=== PATIENT | female | born 1955 | race African-American/Black ===

== ENCOUNTER 2016-10-03 17:48 | Observation (INO) ==
[2016-10-03] MEDS ORDERED: ASPIRIN 325 MG TABLET PO STA (18:27)
[2016-10-03] MEDS ORDERED: NITROGLYCERIN 2% OINT 1 INCH/GM PACK TOP STA (18:27)
[2016-10-03] MEDS ORDERED: KETOROLAC 30 MG/1 ML VIAL IV STA (18:27)
[2016-10-03] MEDS ORDERED: ALUM/MAG/SIMETH/LIDO VISC 1:1 30 ML BOTTLE PO STA (18:27)
[2016-10-03] MEDS ORDERED: ONDANSETRON 4 MG/2 ML VIAL IV STA (18:27)
[2016-10-03] MEDS ORDERED: FUROSEMIDE 40 MG/4 ML VIAL IV STA (18:27)
--- NOTE | 2016-10-03 18:30 | EKG Report ---
Stationary ECG Study [facility] ER Test Date: 10/03/2016 6:13:22 PM Pat Name: NENA HERNANDEZ Department: Room: Gender: F Job Checker: : 1955 Requested by: Ricky Ozuna Order Number: [id number] Reading MD: CHUCHO PETE Intervals [place] Rate: 64 P: 65 IN: 175 QRS: 29 QRSD: 85 T: 13 QT: 384 QTc: 393 Interpretive Statements SINUS RHYTHM SEPTAL INFARCT, PROBABLY OLD Electronically Signed On 10-08-16 11:26:23 CDT by CHUCHO PETE [email or web address]
[2016-10-03] MEDS ORDERED: ONDANSETRON 4 MG/2 ML VIAL ONE (18:45)
[2016-10-03] MEDS ORDERED: FUROSEMIDE 40 MG/4 ML VIAL ONE (18:45)
[2016-10-03] MEDS ORDERED: NITROGLYCERIN 2% OINT 1 INCH/GM PACK TOP ONE (18:45)
[2016-10-03 18:46] LABS: Basophils % 0.5 % (0.0-0.8); Eosinophils # 0.1 10*3/uL (0.0-0.87); Hematocrit 40.1 VOL% (35.7-47.0); Hemoglobin 13.4 GM/DL (12.0-16.0); Immature Granulocytes % 0.3 %; Immature Granulocytes Absolute 0.02 #; Lymphocytes # 2.9 10*3/uL (1.4-4.0); Lymphocytes % 48.6 % (21.3-54.2); Mean Corpuscular HGB Conc 33.4 GM/DL (32-36); Mean Corpuscular Hemoglobin 31 PG (27-34); Mean Corpuscular Volume 91.8 FL (87-102); Mean Platelet Volume 10.4 FL (9.6-12.0); Monocytes # 0.7 10*3/uL (0.11-0.8); Monocytes % 11.4 % (1.7-12.7); Neutrophils # 2.3 10*3/uL (1.4-7.4); Neutrophils % 38.2 % (38.7-73.9); Platelet Count 216 T/CUMM (130-400); Red Blood Count 4.37 MC/CUMM (3.8-5.5); Red Cell Distribution Width 14.2 % (9.3-17.3)
[2016-10-03] MEDS ORDERED: KETOROLAC 30 MG/1 ML VIAL ONE (18:46)
[2016-10-03] MEDS ORDERED: ASPIRIN 325 MG TABLET ONE (18:46)
[2016-10-03] MEDS ORDERED: ALUM/MAG/SIMETH/LIDO VISC 1:1 30 ML BOTTLE PO ONE (18:46)
[2016-10-03 18:53] LABS: PT Patient Result 10.5 SECS
[2016-10-03 18:57] LABS: Albumin 3.5 G/DL (3.4-5.0); Bilirubin,Total 0.4 MG/DL (0.2-1.0); Calcium 9.1 MG/DL (8.5-10.1); Osmolality,Calculated 285.8 MOS/KG (273-304); Potassium 3.7 MMOL/L (3.5-5.1); Total Protein 6.6 G/DL (6.4-8.3)
[2016-10-03 18:58] LABS: Magnesium 2.1 MG/DL (1.8-2.4)
--- NOTE | 2016-10-03 19:09 | XRay Report ---
XR chest 2V Date: 10/03/2016 6:28 PM History: Chest pain Comparison: None Technique: PA and lateral chest Findings: The heart is normal in size. The lungs are clear with unremarkable mediastinum. Degenerative changes are noted. Impression: No acute cardiopulmonary pathology identified. PROCEDURE INTERPRETED AT [facility] DEPARTMENT OF RADIOLOGY Final Report Signed by: Dr. Laverne Barroso
--- NOTE | 2016-10-03 19:20 | Emergency Department Note ---
ICarlos Kasabria, am scribing for, and in the presence of, Ricky Feldman MD 18:42. IGaston Charles R, MD, personally performed the services described in this documentation, ascribed by Nuria Gonzalez in my presence, and it is both accurate and complete 920 . Arrival - Arrival Chief Complaint: Chest Pain Stated Complaint: CHEST PAINS ED Nursing Triage Note: PT C/O PAIN TO LEFT CHEST WALL THAT RADIATES TO LEFT SHOULDER. PT C/O SHORTNESS OF BREATH WITH EXERTION AND ALSO WHILE TALKING. PT REPORTS WALKING 7 MILES THIS MORNING. PT TOOK A GAS PILL LEARNING AND DEVELOPMENT OFFICER TO RULE OUT INDIGESTION. PT ALSO TOOK 1 [employer] ASA LEARNING AND DEVELOPMENT OFFICER. Mode of Arrival: Ambulatory Limitations: No Limitations Source: Patient Time Seen by Provider: 10/03/16 18:26 - History of Present Illness HPI Narrative: This is a 60 y/o black female presenting to the ED with c/o left sided chest wall tenderness that radiates to her neck and down her left shoulder. She describes the pain as a heaviness. Pt states when she walks she becomes short of breath with exertion and she is dyspneic when talking. Pt states she thought this was indigestion at first so she took Gas X with no relief. 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 She took a baby ASA travel pta with no relief. A physical was performed yesterday by Dr. Bowling which showed no abnormalities. She has diaphoresis but denies nausea, vomiting, diarrhea, abdominal pain, LENZ, vision change, and dysuria. Consistency: constant Severity: moderate Quality: other (heaviness ) Allergies/Adverse Reactions: Allergies Allergy/AdvReac Type Severity Reaction Status Date / Time codeine Allergy Hallucinati Verified 10/03/16 18:07 ng Home Medications: Home Medications Medication Instructions Recorded Confirmed Type Atorvastatin [Lipitor] 10 mg PO BEDTIME 10/03/16 10/03/16 History Valsartan/Hctz 80-12.5 [Diovan Hct 1 tablet PO QAM 10/03/16 10/03/16 History 80-12.5] Review of System - Review of System 12 point system: reviewed and no additional remarkable complaints except as stated - Review of System Constitutional: Present: diaphoresis. Absent: chills, fever, weakness Eyes: Absent: vision change Head/Ears/Nose/Throat: Absent: earache, nasal drainage Respiratory: Absent: cough, wheezing Cardiovascular: Present: chest pain (left sided that radiates to neck and left shoulder ), dyspnea on exertion Gastrointestinal: Absent: abdominal pain, nausea, vomiting, diarrhea Genitourinary female: Absent: dysuria Musculoskeletal: Absent: arm pain, back pain, leg pain, neck pain Skin: Absent: rash Neurological: Absent: headache, weakness, numbness, confusion, vertigo Psychiatric: Absent: anxiety Endocrine: Absent: fatigue Hematological/Lymphatic: Absent: easy bleeding Allergic/Immunologic: Absent: facial swelling Medical,Surgical,& Family Hx - Medical History Cardio: History of: Hypertension Endocrine: History of: Dyslipidemia - Surgical History Reproductive Surgeries: Surgical HX of;: Breast Surgery (RIGHT LUMPECTOMY) - Family History Family History: Reports;: Family Heart Disease - Social History Smoking Status: Never smoker Frequency of Alcohol Use: None Type of Drug Use: None Exam Vital Signs: Vital Signs Temperature 97.8 F 10/03/16 18:41 Pulse Rate 66 10/03/16 18:41 Respiratory Rate 20 10/03/16 18:41 Blood Pressure 191/98 10/03/16 18:41 O2 Sat by Pulse Oximetry 98 10/03/16 18:02 - General General appearance: alert, in no apparent distress - Head Head exam: Present: atraumatic, normocephalic, normal inspection - Eye Eye exam: Present: normal appearance, PERRL, EOMI - ENT ENT exam: Present: normal exam, normal oropharynx, mucous membranes moist, TM's normal bilaterally, normal external ear exam - Neck Neck exam: Present: normal inspection, full ROM, trachea midline. Absent: tenderness - Chest Chest inspection: Present: normal inspection, symmetric chest wall rise - Respiratory Respiratory exam: Present: rales (at the base bilaterally ). Absent: normal lung sounds bilaterally - Cardiovascular Cardiovascular exam: Present: regular rate, irregular rhythm (extrasystole ). Absent: normal rhythm - Abdominal Exam Abdominal exam: Present: soft, normal bowel sounds. Absent: distention, tenderness - Extremities Exam Extremities exam: Present: normal inspection, full ROM, normal capillary refill. Absent: tenderness, pedal edema, calf tenderness - Back Exam Back exam: Present: normal inspection, full ROM. Absent: tenderness - Neurological Exam Neurological exam: Present: alert, oriented X3, CN II-XII intact, normal gait, reflexes normal - Psychiatric Psychiatric exam: Present: normal affect, normal mood - Skin Skin exam: Present: warm, dry, intact, normal color. Absent: diaphoresis Course - Consultations Consultation #1: Hospitalist will admit patient Time: 20:18 Results - Labs CBC & BMP: 10/03/16 18:25 10/03/16 18:25 Lab Results: I have reviewed the patients labs Disposition Clinical Impression: Chest pain, Unstable angina pectoris Case discussed with: patient, patient's family Disposition: Still a Patient Condition: Stable Time of Disposition: 20:18
[2016-10-03 19:34] LABS: Eosinophils 1 % (0-10); Hypochromasia Slight; Lymphocytes 52 % (20-55); Platelet Estimate Normal; Segmented Neutrophils 36 % (50-85); Total Cells Counted 100
[2016-10-03 19:35] LABS: Burr Cells Few; Poikilocytosis 1+; Tear Drop Cells Few
[2016-10-03] MEDS ORDERED: ZALEPLON 5 MG CAPSULE PO PRN (20:17)
[2016-10-03] MEDS ORDERED: ACETAMINOPHEN 325 MG TABLET PO PRN (20:17)
[2016-10-03] MEDS ORDERED: MORPHINE 2 MG/1 ML SYRINGE IV PRN (20:17)
[2016-10-03 20:52] LABS: Apearance,Urine CLEAR (Clear); Bilirubin,Urine Negative (Negative); Blood, Urine Small mg/dL (Negative); Glucose,Urine (UA) Negative (Negative); Ketones,Urine Negative (Negative); Mucus,Urine Occasional /LPF (Occasional); Nitrite,Urine Negative (Negative); Protein,Urine Negative; RBC,Urine 2 /HPF (0-4); Squamous Epithelial Cell,Urine Occasional /HPF (0-10); Urine Color Colorless (Yellow); Urine Specific Gravity 1.004 (1.001-1.035); Urine Urobilinogen < 2.0 EU/DL (0.2-1.0); WBC,Urine 1 /HPF (0-6)
[2016-10-03] MEDS: ATORVASTATIN 10 MG TABLET PO SCH (22:11)
[2016-10-03] MEDS: ENOXAPARIN 40 MG/0.4 ML SYRINGE SUBCUT SCH (22:11)
--- NOTE | 2016-10-03 22:43 | Hospitalist History & Physical ---
Assessment and Plan (1) Unstable angina pectoris Status: Acute Assessment and plan: Admitted to telemetry Serial cardiac enzymes 3 Repeat EKG in a.m. Consult cardiology Check lipid panel and TSH for further risk stratification Continue home medications Morphine oxygen nitroglycerin and aspirin Current Visit: Yes (2) Chest pain Status: Acute Current Visit: Yes Qualifiers: Ischemic chest pain type: unstable angina pectoris (3) Hypertension Status: Chronic Current Visit: Yes Qualifiers: Hypertension type: essential hypertension Qualified Code(s): I10 - Essential (primary) hypertension (4) Hyperlipidemia Status: Chronic Current Visit: Yes Qualifiers: Hyperlipidemia type: unspecified Qualified Code(s): E78.5 - Hyperlipidemia , unspecified History of Present Illness Chief complaint: Chest pain and shortness of breath History of present illness: Ms. Flores is a 60 year old female presented to the emergency department today with sudden onset mid sternal chest pain and pressure. The patient reports symptoms began at rest. They were persistent and worsening. She describes it as a heaviness and dull pressure in the middle of her chest. It was associated with some diaphoresis and shortness of breath. No syncope. She has never had symptoms like this before. And improved with nitroglycerin in the emergency department. She has a history of hypertension hyperlipidemia. Family history is significant for coronary artery disease and multiple family members. Cardiac enzymes are negative in the emergency department. She is being admitted for serial cardiac enzymes, repeat EKG in consultation with cardiology for possible stress test. Ms. Flores is relatively active and walks regularly for exercise. The symptoms began at rest while at home. She denies any anxiety or stress or associated factors with the pain. Home Medications Medication Instructions Recorded Confirmed Type Atorvastatin [Lipitor] 10 mg PO BEDTIME 10/03/16 10/03/16 History Valsartan/Hctz 80-12.5 [Diovan Hct 1 tablet PO QAM 10/03/16 10/03/16 History 80-12.5] Allergies Allergy/AdvReac Type Severity Reaction Status Date / Time codeine Allergy Hallucinati Verified 10/03/16 18:07 ng Medical,Surgical,& Family Hx - Medical History Cardio: History of: Hypertension Endocrine: History of: Dyslipidemia - Surgical History Reproductive Surgeries: Surgical HX of;: Breast Surgery (RIGHT LUMPECTOMY) - Family History Family History: Reports;: Family Heart Disease - Social History Smoking Status: Never smoker Frequency of Alcohol Use: None Type of Drug Use: None Marital Status: Lives With:: Spouse Functional capacity: independent ambulation 12 point system: reviewed and no additional remarkable complaints except as stated Exam - Constitutional Exam: Constitutional System: No distress. No tremulousness. Head: Normocephalic, atraumatic. Ears, Nose and Throat System: No pain or tenderness. No epistaxis or discharge Eyes System: Pupils equal, round, and reactive. Extraocular muscles intact. Neck: Supple, without adenopathy, No jugular venous distention. No thyromegaly, neck mass, or prior surgery apparent. Respiratory System: Chest clear to auscultation. Cardiovascular System: Heart with regular rate and rhythm. No murmur. GI System: Abdomen soft, nontender. Normo active bowel sounds present. Musculoskeletal System: limbs with no pedal edema. Full distal pulses. Neurological System: No discernable sensory deficit. No aphasia Psychiatric System: Conversation is rational Results - Labs CBC & BMP: 10/03/16 18:25 10/03/16 18:25 Lab Results: I have reviewed the past 24 hour labs - EKG EKG results: interpreted by ABDIRIZAK, no acute changes
[2016-10-03 23:17] LABS: Troponin I Only < 0.015 NG/ML (0.00-0.045)
[2016-10-04 02:04] LABS: Risk Ratio 1.88; Thyroid Stimulating Hormone 2.12 uIU/ml (0.358-3.74); VLDL CHOLESTEROL 14.2 MG/DL
[2016-10-04 04:43] LABS: Troponin I Only < 0.015 NG/ML (0.00-0.045)
--- NOTE | 2016-10-04 06:28 | EKG Report ---
Stationary ECG Study [facility] Test Date: 10/04/2016 2:53:01 AM Pat Name: NENA HERNANDEZ Department: Room: 265 Gender: F Plan Coordinator: Dejuan : 1955 Requested by: Ricky Ozuna Order Number: [id number] Reading MD: CHUCHO PETE Intervals [place] Rate: 56 P: 44 IN: 180 QRS: 70 QRSD: 81 T: -70 QT: 418 QTc: 410 Interpretive Statements SINUS BRADYCARDIA WITH SINUS ARRHYTHMIA Electronically Signed On 10-08-16 11:36:54 CDT by CHUCHO PETE [email or web address]
--- NOTE | 2016-10-04 08:47 | Cardiology Consult Note ---
<Marianela Putnam - Last Filed: 10/04/16 08:44> Assessment and Plan - Time spent with patient Time spent with patient: Greater than 30 minutes (1) Chest pain Status: Acute Assessment and plan: Patient is currently chest pain-free. EKG does reveal ST changes inferiolaterally. Cardiac biomarkers are benign. Will continue to cycle cardiac biomarkers and EKG. I have ordered an echocardiogram. Will keep patient n.p.o. and further discuss with dam operator. Further plan and addendum to follow. Current Visit: Yes Qualifiers: Ischemic chest pain type: unstable angina pectoris (2) Hyperlipidemia Status: Chronic Assessment and plan: LDL is well controlled at 65. Will continue current plan of care with lipid lowering agent. Current Visit: Yes Qualifiers: Hyperlipidemia type: unspecified Qualified Code(s): E78.5 - Hyperlipidemia , unspecified (3) Hypertension Status: Chronic Assessment and plan: Blood pressure is well controlled. Will continue current plan of care at this time. Patient is bradycardic with heart rate of 50. Will hold off on starting beta-ryan at this time. Current Visit: Yes Qualifiers: Hypertension type: essential hypertension Qualified Code(s): I10 - Essential (primary) hypertension (4) Family history of coronary artery disease Status: Chronic Current Visit: Yes History of Present Illness - Data of Consult Patient: new to practice Consult date: 10/04/16 Requesting Physician: Andrew Cardenas Primary care physician: Matthew Claros - Consult Narrative Reason for consult: Chest pain History of present illness: Pressure Controller: Dr. Botello in the remote past PCP: Dr. Matthew Pizarro Cardiology consult note: Chest pain Ms. Flores is a 60 year old female with no known history of coronary artery disease, not routinely followed by cardiology. Her primary care provider is Dr. Matthew Claros. Patient presented to the ER yesterday with complaints of chest pain. She has cardiac risk factors significant for hypertension, hyperlipidemia and family history of coronary artery disease (father from massive DC at age 55, brother had coronary stent placed at age 67 and second brother had myocardial infarction at age 61). Patient is a lifetime non- smoker and nondrinker. She also denies use of recreational drugs. She underwent heart catheterization by Dr. Nuno Botello February 2003. At that time, she had no significant obstructive coronary disease with minimal luminal irregularities. She had normal LV systolic dysfunction. At that time, Dr. Botello felt that her chest pain was stress related. She was in her usual state of health until yesterday around 4 PM when she began having chest heaviness while walking from her car inside her house. She reports that her and her had just gotten back home from running errands around town. She describes the pain as a dull, heaviness type pain located in the middle portion of her chest that radiated to her neck. She tells me that it felt like "a ton of bricks were sitting on her chest." She also reports that she was holding her chest due to severe pain. She rates this an 8 out of 10. She is unable to identify any aggravating factors. This is associated with shortness of breath and diaphoresis. She denies nausea and heart palpitations/heart racing. She took a Gas-X at home. She tells me that this did not help her pain. She also took a baby aspirin. She reports that this episode felt completely different than in 2002 when she had a normal heart catheterization. Her chest pain was persistent and continued to worsen. At that time, she felt that it was best to be further evaluated in the emergency department. Upon arrival to the ER, she was given nitroglycerin sublingual. She tells me that this relieved her chest pain. She has not had any further chest pain since being admitted to [facility]. She was admitted under the hospitalist's service and housed on the telemetry floor. Cardiology has been consulted to further evaluate patient's chest pain. Of note, patient does report a noticeable change in her exercise tolerance over the past week. She also confirms that she is "more winded" while walking. She attempts to walk at least 3 times a week. She tells me that she never experiences any chest pain or discomfort while walking. She denies fever, chills, cough, abdominal pain, nausea, vomiting, melena, orthopnea, PND and lower extremity swelling. Patient was seen and examined on the telemetry unit. She is currently sitting up in bed in no acute distress. Not requiring oxygen. She denies chest pain, heaviness and tightness at this time. She has also without shortness of breath. Upon exam, her chest pain is not reproducible. Troponin has been negative 4 checks. BNP is also negative. Chest x-ray does not reveal any acute processes. EKG reveals ST changes inferiolaterally. No prior EKG available for comparison. Will continue to cycle cardiac biomarkers and EKGs. Echocardiogram has been ordered. Will keep patient n.p.o. and further discuss with dam operator. Further plan and addendum to follow per dam operator. CC: Mary Anne East MD - Home Medications and Allergies Home Medications: Home Medications Medication Instructions Recorded Confirmed Type Atorvastatin [Lipitor] 10 mg PO BEDTIME 10/03/16 10/03/16 History Valsartan/Hctz 80-12.5 [Diovan Hct 1 tablet PO QAM 10/03/16 10/03/16 History 80-12.5] Allergies/Adverse Reactions: Allergies Allergy/AdvReac Type Severity Reaction Status Date / Time codeine Allergy Hallucinati Verified 10/03/16 18:07 ng - Constitutional Constitutional: Absent: chills, fatigue, fever(s), frequent falls, headache(s), lethargy, malaise, weight gain, weight loss - Cardiovascular Cardiovascular: Present: as per HPI, diaphoresis, dyspnea, dyspnea on exertion, radiating jaw, neck or arm pain, other (Chest pain). Absent: edema, lightheadedness, orthopnea, palpitations, PND - Respiratory Respiratory: Present: dyspnea, dyspnea on exertion. Absent: cough, hemoptysis, wheezing, snoring, pain on inspiration, change in phlegm color - Gastrointestinal Gastrointestinal: Absent: abdominal pain, change in bowel habits, coffee ground emesis, constipation, cramping, diarrhea, heartburn, melena, nausea, vomiting - Neurological Neurological: Absent: abnormal gait, abnormal speech, behavioral changes, dizziness, frequent falls, headache(s), syncope - Psychiatric Psychiatric: Absent: anxiety, panic attacks - Hematologic/Lymphatic Hematologic/Lymphatic: Absent: easy bleeding, easy bruising, lymphadenopathy Medical,Surgical,& Family Hx - Medical History Cardio: History of: Hypertension Endocrine: History of: Dyslipidemia - Surgical History Cardiac Surgeries: Sugical HX of: Cardiac Catheterization Neurologic Surgeries: Patient denies: Neurologic Surgery Reproductive Surgeries: Surgical HX of;: Breast Surgery (RIGHT LUMPECTOMY) - Family History Family History: Reports;: Family Heart Disease - Social History Smoking Status: Never smoker Frequency of Alcohol Use: None Type of Drug Use: None Marital Status: Lives With:: Spouse Functional capacity: independent ambulation Physical Examination Vital Signs Temp Pulse Resp BP Pulse Ox 97.8 F 66 18 191/98 98 10/03/16 18:02 10/03/16 18:02 10/03/16 18:02 10/03/16 18:02 10/03/16 18:02 General: Present: Appears Well, No Apparent Distress Neck: Present: Supple Neck, Midline Trachea, No JVD/HJR Cardiac: Present: Reg Rate and Rhythm, Regular Rate, Regular Rhythm, S1/S2, Bradycardia Lungs: Present: Normal Exam, Clear Ascult./Percussion, Normal Breath Sounds, No Wheeze, Rales, Rhonchi. Absent: Oxygen Abdomen: Present: Soft, Active Bowel Sounds, No Masses, Non-Tender Skin: Present: Clear. Absent: Rash Gait: Present: Normal Gait Extremities: Present: Normal Gait, No Clubbing, No Cyanosis, No Edema, Normal Upper Extr. Pulses, Normal Lower Extr. Pulses Result/EKG - Labs CBC & BMP: 10/03/16 18:25 10/03/16 18:25 Lab Results: I have reviewed the past 24 hour labs Labs: Laboratory Results - last 24 hr 10/03/16 10/04/16 10/04/16 22:28 01:01 01:01 Total Creatine Kinase 180 CK-MB (CK-2) 1.9 Troponin I < 0.015 Triglycerides 71 Cholesterol 130 LDL Cholesterol 65.0 VLDL Cholesterol 14.2 HDL Cholesterol 69 H Heart Disease Risk Ratio 1.88 Free T4 0.80 TSH 3rd Generation 2.120 10/04/16 10/04/16 01:01 03:00 Total Creatine Kinase 150 CK-MB (CK-2) 1.2 Troponin I < 0.015 < 0.015 Triglycerides Cholesterol LDL Cholesterol VLDL Cholesterol HDL Cholesterol Heart Disease Risk Ratio Free T4 TSH 3rd Generation <Azael Escalera - Last Filed: 10/04/16 10:30> History of Present Illness - Consult Narrative History of present illness: Patient's personal interviewed and examined and chart reviewed. I discussed this case with Marianela Putnam FARM HELPER. I agree with the above history, exam and assessment. In summation an addition Ms. Flores is a 60 year old female who presented with what she describes as a sudden onset of pressure on her chest with shortness of breath some mild nausea and diaphoresis. This lasted maybe 30 minutes to an hour. Her ECG with inferior lateral ST abnormalities consistent with possible inferior lateral ischemia. Her troponin is nondetectable 4. With her ECG and her symptoms certainly sounding angina and her risk factors ( hypertension and dyslipidemia) especially family history of coronary disease and some of which is premature I think she should have car catheterization with possible percutaneous coronary imaging. I discussed this procedure with the patient reviewing the indications as well as how would be carried out and the risk. I discussed cardiac catheterization and percutaneous coronary intervention with the patient and available family. I reviewed with them the indications for the procedure and the basis of how the procedure would be carried out. I also reviewed with them the risk of the procedure which include but not necessarily limited to access site bleeding, bruising, pain, swelling or vascular injury that may require emergency vascular surgery, blood transfusion, or thrombin injection. Also discussed the possibility of stroke, myocardial infarction, arrhythmia which may require electrocardioversion, and the possibility of dye reaction that would require medical therapy. Also discussed the possibility of coronary artery injury, ruptured, closure or perforation that may require emergency bypass surgery. We also discussed the possibility of from a major complication. They voice understanding and agree to proceed. Dr. Mcdaniel will see the patient in carried out procedure is indicated. CC: Mary Anne East MD Physical Examination Vital Signs Temp Pulse Resp BP Pulse Ox 97.8 F 66 18 191/98 98 10/03/16 18:02 10/03/16 18:02 10/03/16 18:02 10/03/16 18:02 10/03/16 18:02 Result/EKG - Labs CBC & BMP: 10/03/16 18:25 10/03/16 18:25 Labs: Laboratory Results - last 24 hr 10/03/16 10/04/16 10/04/16 22:28 01:01 01:01 Total Creatine Kinase 180 CK-MB (CK-2) 1.9 Troponin I < 0.015 Triglycerides 71 Cholesterol 130 LDL Cholesterol 65.0 VLDL Cholesterol 14.2 HDL Cholesterol 69 H Heart Disease Risk Ratio 1.88 Free T4 0.80 TSH 3rd Generation 2.120 10/04/16 10/04/16 10/04/16 01:01 03:00 08:14 Total Creatine Kinase 150 137 CK-MB (CK-2) 1.2 1.4 Troponin I < 0.015 < 0.015 < 0.015 Triglycerides Cholesterol LDL Cholesterol VLDL Cholesterol HDL Cholesterol Heart Disease Risk Ratio Free T4 TSH 3rd Generation
[2016-10-04 08:56] LABS: Troponin I Only < 0.015 NG/ML (0.00-0.045)
[2016-10-04] MEDS: VALSARTAN/HCTZ 80-12.5 MG TABLET PO SCH (09:14)
[2016-10-04] MEDS: PANTOPRAZOLE 40 MG TABLET PO SCH (09:14)
[2016-10-04] MEDS: ASPIRIN EC 81 MG TABLET PO SCH (09:23)
[2016-10-04] MEDS ORDERED: DIAZEPAM 5 MG TABLET PO ONE (10:20)
[2016-10-04] MEDS ORDERED: MAGNESIUM SULF RIDER 2 GM in PREMIX 1 EACH IV PRN (10:20)
[2016-10-04] MEDS ORDERED: POTASSIUM CHLORIDE RIDER 10 MEQ in PREMIX 1 EACH IV PRN (10:20)
[2016-10-04] MEDS ORDERED: diphenhydrAMINE CAP 25 MG CAPSULE PO ONE (10:20)
[2016-10-04] MEDS ORDERED: SODIUM CHLORIDE 0.9% 1,000 ML IV SCH (10:30)
--- NOTE | 2016-10-04 10:46 | Event Note ---
I examined interview Mrs. Flores. Her symptoms are concerning for unstable angina. Her EKG is suggestive of ischemia anteriorly. She had episode of chest pressure "like a ton of bricks" associated diaphoresis shortness of breath after walking in from the car. We will plan heart catheterization. Right radial access. I discussed with the patient arrest and benefits of heart catheterization including but not limited to: , stroke, heart attack, vascular damage, reaction to medicine or dye, bleeding requiring blood transfusion, failure the procedure, possible need for planned her emergency heart surgery. I have answered all the patient's questions and the patient is agreeable to proceed.
[2016-10-04] MEDS ORDERED: LIDOCAINE 1% 20 ML VIAL ONE (11:30)
[2016-10-04] MEDS ORDERED: HYDROmorphone 2 MG/1 ML VIAL ONE (11:33)
[2016-10-04] MEDS ORDERED: MIDAZOLAM 2 MG/2 ML VIAL ONE (11:33)
[2016-10-04] MEDS ORDERED: NITROGLYCERIN DRIP 50 MG/250 ML BOTTLE IV ONE (11:40)
[2016-10-04] MEDS ORDERED: VERAPAMIL 5 MG/2 ML VIAL ONE (11:40)
[2016-10-04] MEDS ORDERED: ENOXAPARIN 30 MG/0.3 ML SYRINGE ONE (12:02)
--- NOTE | 2016-10-04 12:25 | Cardiac Catheterization ---
Date of Procedure:: 10/04/16 Post-op diagnosis: same Procedure: Procedure performed: 1. Rosacea 2. Coronary angiography 3. Left ventriculography Brief summary: Ms. Flores is a 60-year-old with family history early coronary artery disease having had chest pains with shortness of breath and diaphoresis and T-wave inversions in precordial leads. She ruled out for PR. Description of procedure: After obtaining informed consent the patient transferred to the catheterization lab, and the right wrist was prepped and draped in the usual sterile fashion. Next a short 6 Kazakh sheath was placed in the right radial artery using the Seldinger technique after the patient received IV sedation, and local anesthetic. I then injected a vasodilator cocktail into the sheath. We gave her 30 mg of intravenous Lovenox prior to the procedure. Next a 5 Kazakh TIG catheter was advanced to the left coronary artery, but would not engage's, so indirect and James was performed in multiple views. Of note I had to use a CASTRO catheter to advance the wire into the ascending aorta and then changed out over a long J-wire. I then changed out for an AR-1 catheter which I was able to engage the right coronary artery reasonably easily after which angiography of the views. He was then manipulated into the left coronary artery were and goes taken multiple views. The catheter was removed over a J-wire. The catheter was changed out over a wire for a pigtail which was advanced to the left ventricle where hemodynamic measurements were taken left ventriculography was performed. Hemostasis was obtained with a TR band, using "patent hemostasis" technique. The patient was transferred from the catheterization lab in good condition. Coronary angiography: The left main coronary is normal developed 3 disease. Lactated Ringer to see on his average caliber giving off average caliber first diagonal and a small second branch. There is some mid LAD bridging, but without stenosis. The circumflex gives off 2 average caliber obtuse marginals which are somewhat tortuous. The right coronary artery is approximately average caliber giving off a high PDA which is essentially acute marginal which supplies the majority of the PDA territory distally. There is essentially a thin accessory PDA that supplies more the proximal septum. There is also a thin tortuous PL branch.. The coronaries are angiographically normal. Left ventriculography: Left ventricle normal size and normal LV systolic function. He has been ejection fraction 60% without segmental wall motion abnormalities. Impression: 1. Normal LV systolic function with ejection fraction assessment be 60% without segmental wall traumatic 2. Right dominant system 3. Normal coronary arteries 4. Mid LAD "bridging" is noted without stenosis Recommendations discussion: Given these findings, I suspect Ms. Flores symptoms aren't not cardiac in etiology. Her normal LV function is encouraging. It is conceivable that she has some symptomatic bridging, but there is no stenosis during the angiographic to suggest that. Anesthesia: minimal conscious sedation Surgeon / Physician: Cooper Ugalde Occupational Therapist Per Diem: other Estimated blood loss: minimal Specimens: none sent Condition: stable Disposition: floor - Medications / Follow-up
[2016-10-04] MEDS: ONDANSETRON 4 MG/2 ML VIAL IV PRN ×2 (14:26→18:03)
--- NOTE | 2016-10-04 16:34 | Discharge Summary ---
Discharge Plan - Discharge Medications No Action Atorvastatin [Lipitor] 10 mg PO BEDTIME Valsartan/Hctz 80-12.5 [Diovan Hct 80-12.5] 1 tablet PO QAM - Follow Up or Referral - Forms/Instructions Exam - Constitutional Vitals: Period Temp Pulse Resp BP Sys/Avendaño Pulse Ox Last 24 Hr 96.2 F-97.4 F 50-67 16-20 105-144/58-73 90-98 Discharge Results Procedures and tests throughout hospitalization: Pending Orders 10/04/16 10:27 CL heart Routine 10/05/16 04:00 Basic Metabolic Panel IN AM Comp Blood Count Auto Diff IN AM Magnesium IN AM Labs on day of discharge: Labs from last 24 hours 10/04/16 10/04/16 10/04/16 08:14 03:00 01:01 Total Creatine Kinase 137 150 CK-MB (CK-2) 1.4 1.2 Troponin I < 0.015 < 0.015 < 0.015 Triglycerides Cholesterol LDL Cholesterol VLDL Cholesterol HDL Cholesterol Heart Disease Risk Ratio Free T4 TSH 3rd Generation 10/04/16 10/04/16 10/03/16 01:01 01:01 22:28 Total Creatine Kinase 180 CK-MB (CK-2) 1.9 Troponin I < 0.015 Triglycerides 71 Cholesterol 130 LDL Cholesterol 65.0 VLDL Cholesterol 14.2 HDL Cholesterol 69 H Heart Disease Risk Ratio 1.88 Free T4 0.80 TSH 3rd Generation 2.120 DS: Provider Date of admission: 10/03/16 20:17 Primary care physician: . No PCP Attending physician on admission: Mary Anne East MD Discharging clinician: Mary Anne East MD
--- NOTE | 2016-10-04 16:38 | Hospitalist Progress Note ---
Assessment and Plan (1) Headache Status: Acute Assessment and plan: 1)chest pain- no longer complaining of this, coronary arteries looked good at cath with normal LV function. Etiology not clear. 2)headache- she thinks it's because she hasn't eaten today. did not tolerate diet. [place] prn with zofran. neuro exam normal. 3)emesis with food- suspect this is nausea related to the meds she has had today. start with crackers and clear liquids, advance as tolerated. zofran prn. 4)HTN 5)hyperlipidemia Current Visit: Yes (2) Chest pain Status: Acute Current Visit: Yes Qualifiers: Ischemic chest pain type: unstable angina pectoris (3) Family history of coronary artery disease Status: Chronic Current Visit: Yes (4) Hyperlipidemia Status: Chronic Current Visit: Yes Qualifiers: Hyperlipidemia type: unspecified Qualified Code(s): E78.5 - Hyperlipidemia , unspecified (5) Hypertension Status: Chronic Current Visit: Yes Qualifiers: Hypertension type: essential hypertension Qualified Code(s): I10 - Essential (primary) hypertension Hospitalist: Subjective Interval history: Mrs Flores ruled out for [place]. She had cath today that showed normal LV function and clean coronaries. She is resting post cath now and complained of headache and hunger. When she got her tray she ate but then vomited. She has no focal neuro complaints. She is cleared for discharge from cardiology standpoint, but I am going to watch her overnight as she is still sleepy post procedure and let her eat without emesis before discharge tomorrow. Exam - Constitutional Vitals: Period Temp Pulse Resp BP Sys/Avendaño Pulse Ox Last 24 Hr 96.2 F-97.4 F 40-67 16-20 105-144/58-82 90-98 General appearance: no acute distress, over weight - Head Head exam: Present: normocephalic, atraumatic - Eye Eye exam: Present: EOMI. Absent: scleral icterus - Respiratory Respiratory exam: Present: clear to auscultation bilaterally (no tenderness on palpation) - Cardiovascular Cardiovascular exam: Present: regular rate and rhythm - GI/Abdominal GI/Abdominal exam: Present: normal bowel sounds, soft. Absent: tenderness - Extremities Exam Extremities exam: Absent: edema - Neurological Exam Neurological exam: Present: other (sleepy but wakes to voice and answers questions appropriately. CN intact, strength and sensation intact thorughout. ) - Skin Skin exam: Present: warm, dry Results - Labs CBC & BMP: 10/03/16 18:25 10/03/16 18:25 Lab Results: I have reviewed the past 24 hour labs
[2016-10-04] MEDS: DEXTROSE 5% NACL 0.45% 1,000 ML IV SCH (17:20)
--- NOTE | 2016-10-04 19:23 | ECHO Report ---
Leticia Flores Exam Date: 10/04/2016 09:56 Referring Physician: Technologist: Kristina Hill Age: 60 Ht (in): 63 Wt (lb): 221 Gender: F Exam Location: [facility] Echo Indications: chest pain, htn, hyperlipidemia, CAD BP: 144 / 70 HR: 50 Rhythm: Sinus Technical Quality: Fair IMPRESSIONS 1. Left ventricle is normal size systolic function ejection fraction 55-60%. Is anatomically normal with mild concentric left ventricular hypertrophy and what is probably grade 1-2 diastolic dysfunction. 2. Other cardiac chambers are normal size and function. 3. Cardiac valves are essentially normal without any Doppler or anatomical abnormalities. 4. Right-sided pressures are grossly normal. MEASUREMENTS (Male / Female) Normal Values 2D ECHO LV Diastolic Diameter PLAX 3.8 cm 4.2 - 5.9 / 3.9 - 5.3 cm LV Systolic Diameter PLAX 2.0 cm LV Fractional Shortening PLAX 48.0 % IVS Diastolic Thickness 1.4 cm 0.6 - 1.0 / 0.6 - 0.9 cm LVPW Diastolic Thickness 1.2 cm 0.6 - 1.0 / 0.6 - 0.9 cm RV Internal Dim ED PLAX 3.2 cm Aortic Root Diameter 2.6 cm LA Systolic Diameter LX 3.4 cm 3.0 - 4.0 / 2.7 - 3.8 cm DOPPLER TR Peak Velocity 205.0 cm/s TR Peak Gradient 16.8 mmHg FINDINGS Left Ventricle Left ventricle is normal size and systolic function. Ejection fraction is 55-60%. There are no segmental wall motion abnormality is. At worst there is mild concentric left ventricle hypertrophy with grade 1 to 2 diastolic dysfunction. Right Ventricle Normal right ventricular size. Right Atrium Normal right atrial size. Left Atrium Normal left atrial size. Mitral Valve Mitral valve may be slightly thickened but with normal motion and normal Doppler. Aortic Valve Aortic valves a tricuspid structure with normal excursion. No stenosis or insufficiency. Tricuspid Valve Morphologically normal tricuspid valve. Trace to mild tricuspid valve regurgitation. Tricuspid regurgitation velocities suggest a PAP of 22 to 27 mmHg Pulmonic Valve Morphologically normal pulmonic valve. Pericardium No pericardial effusion. Aorta Normal size aortic root and proximal ascending aorta. Azael Escalera MD (Electronically Signed) Final Date: 04 October 2016 19:23
[2016-10-04] MEDS: ATORVASTATIN 10 MG TABLET PO SCH (21:26)
[2016-10-04] MEDS: ENOXAPARIN 40 MG/0.4 ML SYRINGE SUBCUT SCH (21:27)
[2016-10-05 06:15] LABS: Basophils % 0.3 % (0.0-0.8); Eosinophils # 0.1 10*3/uL (0.0-0.87); Eosinophils % 0.8 % (0.00-10.9); Hematocrit 40.4 VOL% (35.7-47.0); Hemoglobin 13.5 GM/DL (12.0-16.0); Immature Granulocytes % 0.5 %; Immature Granulocytes Absolute 0.03 #; Lymphocytes # 2.6 10*3/uL (1.4-4.0); Lymphocytes % 39.8 % (21.3-54.2); Mean Corpuscular HGB Conc 33.4 GM/DL (32-36); Mean Corpuscular Hemoglobin 31 PG (27-34); Mean Corpuscular Volume 91.8 FL (87-102); Mean Platelet Volume 11.3 FL (9.6-12.0); Monocytes # 0.4 10*3/uL (0.11-0.8); Monocytes % 6.2 % (1.7-12.7); Neutrophils # 3.4 10*3/uL (1.4-7.4); Neutrophils % 52.4 % (38.7-73.9); Platelet Count 180 T/CUMM (130-400); Red Cell Distribution Width 14.1 % (9.3-17.3); White Blood Count 6.5 T/CUMM (4-12)
[2016-10-05 06:37] LABS: Elliptocytes Few; Hypochromasia 1+; Ovalocytes Slight; Platelet Estimate Normal
[2016-10-05 07:14] LABS: Calcium 8.6 MG/DL (8.5-10.1)
[2016-10-05 07:15] LABS: Magnesium 2.1 MG/DL (1.8-2.4); Potassium 3.8 MMOL/L (3.5-5.1)
--- NOTE | 2016-10-05 07:43 | EKG Report ---
Stationary ECG Study [facility] Test Date: 10/05/2016 7:42:54 AM Pat Name: NENA HERNANDEZ Department: Room: 265 Gender: F Lab Engineer: JONEL : 1955 Requested by: Marianela Putnam Order Number: [id number] Reading MD: CHUCHO PETE Intervals Coleman Rate: 51 P: 47 HI: 185 QRS: 74 QRSD: 84 T: -13 QT: 417 QTc: 393 Interpretive Statements SINUS BRADYCARDIA LOW QRS VOLTAGE IN PRECORDIAL LEADS NONSPECIFIC T-WAVE ABNORMALITY Electronically Signed On 10-08-16 12:13:40 CDT by CHUCHO PETE [email or web address]
[2016-10-05] MEDS: DEXTROSE 5% NACL 0.45% 1,000 ML IV SCH (08:13)
[2016-10-05] MEDS: PANTOPRAZOLE 40 MG TABLET PO SCH (08:13)
[2016-10-05] MEDS: VALSARTAN/HCTZ 80-12.5 MG TABLET PO SCH (08:13)
[2016-10-05] MEDS: ASPIRIN EC 81 MG TABLET PO SCH (08:13)
--- NOTE | 2016-10-05 09:00 | Event Note ---
Patient is stable post catheterization. Her right wrist stable. Lungs are clear without rales rhonchi or wheezes. Cardiovascular rate and rhythm. She's. The patient's had no further chest pain. Certainly her pain is noncardiac. She is being discharged. She will see cardiology on a when necessary basis.
--- NOTE | 2016-10-05 10:07 | Discharge Summary ---
<Sameera Lizama - Last Filed: 10/05/16 10:31> Hospital Course - Hospital Course Hospital Course: Ms. Flores is a 60 year old female presented to the ED at [facility] on 10/03 with a chief complaint of sudden onset mid sternal chest pain and pressure. The patient has a medical history of hypertension and hyperlipidemia. She reported an acute onset of pain that began at rest. She reported that the symptoms were persistent and worsening. She described the pain as "heaviness and dull" in quality. She reported some intermittent diaphoresis and shortness of breath; however denies syncope. She reported that she never experienced symptoms of this nature in the past. At the time of arrival at the ED, she was given nitroglycerin and her symptoms improved. Cardiac enzymes were obtained and were essentially unremarkable. Given the severity of her presenting symptoms, current medical history, and strong family history of coronary artery disease, she was admitted for a full cardiac evaluation. She was admitted and experienced no additional episodes of chest pain. Serial cardiac enzymes were essentially unremarkable; however her electrocardiogram revealed ST changes inferiolaterally. At that time, cardiology consult was requested. She was evaluated by Dr. Ugalde and advised on the need of cardiac catheterization. On 10/04, she under went cardiac catheterization which was essentially unremarkable. It was suggested that her presenting symptoms were from a non-cardiac origin. Her condition is stable. Today, we feel that she is indeed appropriate for discharge with follow-up with her PCP and cardiology as directed. Specialty Discharge - Follow Up or Referrals Follow up with: destiny Borreg[id number] [Other] Discharge Plan - Discharge Data Disposition: Disch To Home/Self Care - Discharge Medications New Pantoprazole Tab [Protonix Tab] 40 mg PO DAILY #30 tablet Continue Atorvastatin [Lipitor] 10 mg PO BEDTIME Valsartan/Hctz 80-12.5 [Diovan Hct 80-12.5] 1 tablet PO QAM - Follow Up or Referral - Forms/Instructions Exam - Constitutional Vitals: Period Temp Pulse Resp BP Sys/Avendaño Pulse Ox Last 24 Hr 97.2 F-98.6 F 40-60 16-20 118-176/64-83 90-99 Discharge Results Labs on day of discharge: Labs from last 24 hours 10/05/16 10/05/16 05:48 05:48 WBC 6.5 RBC 4.40 Hgb 13.5 Hct 40.4 MCV 91.8 MCH 31 MCHC 33.4 RDW 14.1 Plt Count 180 MPV 11.3 Neut % (Auto) 52.4 Lymph % (Auto) 39.8 Bond % (Auto) 6.2 Eos % (Auto) 0.8 Baso % (Auto) 0.3 Neut # (Auto) 3.4 Lymph # (Auto) 2.6 Bond # (Auto) 0.4 Eos # (Auto) 0.1 Baso # (Auto) 0.0 Immature Gran % 0.5 Nucleated RBC % 0.0 Immature Gran # 0.03 Nucleated RBCs # 0.00 Platelet Estimate Normal Hypochromasia 1+ Ovalocytes Slight Elliptocytes Few Sodium 143 Potassium 3.8 Chloride 107 Carbon Dioxide 28 Anion Gap 11.8 BUN 7 Creatinine 0.80 GFR Calculation 109 BUN/Creatinine Ratio 8.00 Glucose 97 Calculated Osmolality 282.0 Calcium 8.6 Magnesium 2.1 DS: Provider Date of admission: 10/03/16 20:17 Primary care physician: . No PCP Attending physician on admission: Mary Anne East MD Discharging clinician: Sameera Lizama CNP <Mary Anne East - Last Filed: 10/05/16 12:13> Hospital Course - Hospital Course Hospital Course: I have seen and examined Mrs Flores and agree with this summary. She is feeling well today- no more symptoms of chest pain since admission. Her cath was clear. She had some relief of her chest pain with nitro, so it may be that she has esophageal spasm. I have reconciled her medicines and will send continue her meds for HTN and hyperlipidemia and also add a trial of protonix. Follow up with Dr Bowling her PCP in a week. - Time spent with patient Time with patient DS: Less than 30 minutes Diagnosis - Discharge Diagnosis (1) Headache Status: Resolved (2) Chest pain Status: Resolved (3) Family history of coronary artery disease Status: Chronic (4) Hyperlipidemia Status: Chronic (5) Hypertension Status: Chronic Discharge Plan - Discharge Data Condition at Discharge: Stable Discharge Diet: heart healthy Activity: resume usual activities as tolerated Exam - Constitutional General appearance: no acute distress, over weight - Head Head exam: Present: normocephalic, atraumatic - Eye Eye exam: Present: EOMI. Absent: scleral icterus - Respiratory Respiratory exam: Present: clear to auscultation bilaterally - Cardiovascular Cardiovascular exam: Present: regular rate and rhythm - GI/Abdominal GI/Abdominal exam: Present: normal bowel sounds, soft. Absent: tenderness - Extremities Exam Extremities exam: Absent: edema
[2016-10-05 11:23] VITALS: BP 139/77
== END 2016-10-05 14:00 | disposition home or self-care (01) ==
LOC: N.EDINP 17:48 → N.ED 17:48 → N.TELES 21:28
PROVIDERS: ADMIT Internal Medicine; ATTEND Internal Medicine
PROC: CLCCHCL (ICD-10-PCS; 2016-10-04 11:15)